=== PATIENT | female | born 1985 | race Caucasian/White ===

== ENCOUNTER 2018-09-26 14:32 | Inpatient (IN) ==
[2018-09-26] MEDS ORDERED: Labetalol HCl Inj 20 MG/4 ML Vial ONE (15:04)
[2018-09-26] MEDS ORDERED: Labetalol HCl Inj 100 MG/20 ML Vial ONE (15:07)
[2018-09-26 15:26] VITALS: TEMP 98.8
[2018-09-26] MEDS ORDERED: Mag Sulf/Water 40 gm/1000 ml 40 GM/1,000 ML BAG IV.CONT ONE (15:42)
[2018-09-26] MEDS ORDERED: Mag Sulf/Water 4 gm/100 ml 100 ML IV.SIG ONE ×2 (15:42→16:00)
[2018-09-26] MEDS ORDERED: hydrALAZINE HCl Inj 20 MG/ML Vial ONE (15:44)
[2018-09-26] MEDS ORDERED: Labetalol HCl Inj 100 MG/20 ML Vial IV.PUSH PRN ×3 (15:49→16:10)
[2018-09-26] MEDS ORDERED: hydrALAZINE HCl Inj 20 MG/ML Vial IV.PUSH PRN ×2 (15:49→16:10)
[2018-09-26 16:13] LABS: Anion Gap 8 meq/L (5-15); Aspartate Aminotransferase 68 U/L (15-37); Blood Urea Nitrogen 13 mg/dL (7-18); Calcium 8.9 mg/dL (8.5-10.1); Carbon Dioxide 26.2 meq/L (21.0-32.0); Chloride 106 meq/L (98-107); Glomerular Filtration Rate Greater Than 89 mL/min (>89); Glucose,Random 97 mg/dL (74-106); Hematocrit 40.1 % (35.0-46.0); Hemoglobin 14.2 gm/dL (11.6-15.3); Mean Corpuscular HGB Conc 35.4 % (32.0-36.0); Mean Corpuscular Hemoglobin 33.3 pg (27.0-34.0); Mean Corpuscular Volume 94.2 fL (80.0-100.0); Mean Platelet Volume 9.1 fL (7.0-11.0); Platelet Count 252 th/mm3 (150-450); Potassium 3.9 meq/L (3.5-5.1); Red Blood Count 4.25 mil/mm3 (4.00-5.30); Red Cell Distribution Width 13.6 % (11.6-17.2); Sodium 140 meq/L (136-145); Uric Acid 5.9 mg/dl (2.6-6.0); White Blood Count 10.1 th/mm3 (4.0-11.0)
[2018-09-26 16:14] LABS: Alanine Aminotransferase 134 U/L (10-53)
[2018-09-26] MEDS ORDERED: NIFEdipine 10 MG Capsule PO ONE (16:15)
[2018-09-26] MEDS ORDERED: hydrALAZINE HCl Inj 20 MG/ML Vial IV.PUSH ONE (16:15)
[2018-09-26 16:17] LABS: Alkaline Phosphatase 116 U/L (45-117); Total Protein 7.1 g/dL (6.4-8.2)
[2018-09-26 16:19] LABS: Activated Partial Thrombo Time 38.5 sec (23.4-31.7); INR 1.2 Ratio; Prothrombin Time 11.7 sec (9.8-11.6)
[2018-09-26 16:20] LABS: Bilirubin,Urine Negative (Negative); Clarity,Urine Cloudy (Clear); Color,Urine Amber (Yellw/Straw); Glucose,Urine (UA) Negative (Negative); Leukocyte Esterase,Urine Negative (Negative); Mucus,Urine Moderate /lpf (Occasional); Nitrite,Urine Negative (Negative); Specific Gravity,Urine 1.028 (1.002-1.035); Squamous Epithelial Cell,Urine 1 /hpf (0-5)
[2018-09-26] MEDS ORDERED: Mag Sulf/Water 40 gm/1000 ml 40 GM/1,000 ML BAG IV.CONT SCH (16:20)
--- NOTE | 2018-09-26 16:27 | MH ---
cc: Matthew Novoa MD DATE OF ADMISSION: 09/26/2018 TIME OF DICTATION: 1600 hours. ADMITTING DIAGNOSES: 1. at 23 weeks. 2. Severe hypertension. 3. Vaginal bleeding with a subchorionic hemorrhage. 4. Small for dates. HISTORY OF PRESENT ILLNESS: The patient is a 33-year-old single white female, para 0, with LMP of 04/07/2018, EDC of 01/12/2019 by dates; early ultrasound gave her EDC of 01/22/2019, and a followup scan had shown appropriate growth. She had normal Panorama testing, apparent male gender. She presented to the office this morning with the complaint that she had gotten up to void, had a small quantity of blood per vagina with each void. On questioning, she had had nausea and vomiting about 10 p.m. yesterday and woke up early this morning around 2:30 a.m. with at least another 3-4 episodes of nausea and vomiting. After working all day yesterday, she had some edema up to her knees. There is no headache or abdominal pain. Her office evaluation was normal, and she was sent to the ultrasound room, which revealed a with measurements about 12 days behind her dates, breech presentation, normal fluid, EFW 413 grams. There was a subchorionic hematoma measuring 7.5 x 6.4 cm. Blood pressures were checked and elevated at 185-218/131-144, and she was transferred over to the OB unit for further evaluation. PAST MEDICAL HISTORY: She was diagnosed with hypertension at age 15, that resolved and has required no treatment since that time. PAST SURGICAL HISTORY: She had a T and A in childhood, and in 1998 had a laparoscopy with removal of a dermoid cyst. MEDICATIONS: Vitamins. ALLERGIES: NONE. TRANSFUSIONS: None. 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 She is single. Alcohol, tobacco and drugs are none. FAMILY HISTORY: Noncontributory. PHYSICAL EXAMINATION: GENERAL: Reveals an ill-appearing white female. VITAL SIGNS: Elevated blood pressure of 200/140 range. HEENT: Shows some mild edema. CHEST: Clear. HEART: Regular rate. BREASTS: Symmetrical. ABDOMEN: Gravid about 22 weeks' size. PELVIC: Exam in the office revealed no blood. Cervix is closed. EXTREMITIES: Show 1-2 plus edema to the knees. Reflexes are brisk. ASSESSMENT: As above. PLAN: I have discussed with the patient, and her mom and boyfriend that her condition is very worrisome for severe preeclampsia. She is on her hypertension control protocol. She is on magnesium sulfate therapy, and laboratory studies are pending. I explained that if we could stabilize her, I would transfer her to a level 3 facility that could handle very small babies. If unstable or worsening, she would require delivery. I explained the prognosis for the baby is very poor at this gestational age. She understands and agrees to proceed. MD SHANKAR Alfaro/allie , 04:01 PM , 04:11 PM
[2018-09-26 16:39] LABS: Protein/Creatinine Ratio,Urine 0.8 (0.00-0.14); Total Protein,Urine Random 195.1 mg/dL (0-11.8)
[2018-09-26] MEDS ORDERED: Betamethasone Sod Phos/Acetate Inj 30 MG/5 ML Vial IM SCH (17:00)
[2018-09-26 17:04] VITALS: RESP 18
[2018-09-26 19:17] VITALS: BP 162/101; PULSE 108
== END 2018-09-26 19:19 | disposition short-term general hospital (02) | DRG 831 ==
LOC: H2E 14:32
PROVIDERS: ADMIT Obstetrics & Gynecology; ATTEND Obstetrics & Gynecology
CPT/HCPCS: 80053; 80307; 81001; 82570; 84155; 84157; 84550; 85027; 85384; 85610; 85730; G0481; G0483; J0360; J0702; J3475; J7120